=== PATIENT | female | born 1950 | race Caucasian/White ===

== ENCOUNTER 2016-12-30 13:51 | Emergency (ER) | payer MEDICARE ==
[~2016-12-30] VITALS: Ht 167.6 cm; Wt 58.0 kg
[2016-12-30 14:06] VITALS: BP 142/83
== END 2016-12-30 15:11 | disposition left against medical advice (07) ==
LOC: ED 15:05
DX: R10.9 Unspecified abdominal pain (principal); Z53.21 Procedure and treatment not carried out due to patient leaving prior to being seen by health care provider